=== PATIENT | female | born 1975 | race Caucasian/White ===

== ENCOUNTER 2020-08-10 16:49 | Inpatient (IN) | payer OTHER, MEDICARE ==
--- NOTE | 2020-08-10 17:56 | ED ---
General Adult HPI - General Chief complaint: Psychiatric Symptoms Stated complaint: psychosis Time Seen by Provider: 08/10/20 17:25 Source: patient Mode of arrival: ambulatory Limitations: no limitations - History of Present Illness Initial comments: Dictation was produced using [employer] dictation software. please excuse any grammatical, word or spelling errors. This patient was cared for during a federal and state declared state of emergency secondary to Covid 19 Chief Complaint: 45-year-old female presents with bizarre behavior History of Present Illness:. 45-year-old female she is accompanied by her . Patient was brought in for acute bizarre behavior. reports that he received were from patient's best friend that patient has been acting very bizarrely recently. Patient has past mental history of factor V Leiden. She takes Coumadin for this to prevent blood clotting issues. Patient has been very manic recently also has been very paranoid as if people are listening under home personal conversations. She's been having significant insomnia. Patient states she doesn't know why she needs to be in the emergency room. She states she's been under a lot of stress at home. She has no other comorbidities. No history of psychiatric illness. The ROS documented in this emergency department record has been reviewed and confirmed by me. Those systems with pertinent positive or negative responses have been documented in the HPI. All other systems are other negative and/or noncontributory. PHYSICAL EXAM: General Impression: Alert and oriented x3, not in acute distress HEENT: Normocephalic atraumatic, extra-ocular movements intact, pupils equal and reactive to light bilaterally, mucous membranes moist. Cardiovascular: Heart regular rate and rhythm Chest: Able to complete full sentences, no retractions, no tachypnea Abdomen: abdomen soft, non-tender, non-distended, no organomegaly Musculoskeletal: Pulses present and equal in all extremities, no peripheral edema Motor: no focal deficits noted Neurological: CN II-XII grossly intact, no focal motor or sensory deficits noted, non-gait ataxia, no dysdiadochokinesia Skin: Intact with no visualized rashes Psych: Normal affect and mood ED course: 45 y Old female presents with 3-4 days of acute onset paranoia, adelaida. She has no history of psychiatric illness. On arrival are within acceptable limits. Patient's neurologic physical exam is benign. Physical exam is otherwise benign except for her psychiatric portion were patient has been making outlandish paranoid claims. Given that patient has no psychiatric illness and that her symptoms began 3-4 days is concern of acute encephalopathy. Physical evaluation obtained. CBC normal. INR is supratherapeutic with level greater than 10.0. Metabolic panel is within acceptable limits. Rest of metabolic panel is negative. Urinalysis shows 2+ ketones. No white blood cell count. Toxicology is positive for opiates. Computed tomography scan of brain shows no acute processes. Patient not showing any signs of bleeding. She denies any low back pain. 2.5 mg of vitamin K. Patient be admitted for supratherapeutic INR. She will have consultation to psychiatry and neurology for encephalopathy evaluation. EKG interpretation: Ventricular rate 92, normal sinus rhythm, MO interval 120, QRS 80, QTc 437. No MO prolongation, no QTC prolongation, no ST or T-wave changes noted. Overall, this EKG is unremarkable - Related Data Allergies Allergy/AdvReac Type Severity Reaction Status Date / Time doxycycline Allergy Unknown Verified 08/10/20 17:18 Review of Systems ROS Statement: Those systems with pertinent positive or pertinent negative responses have been documented in the HPI. ROS Other: All systems not noted in ROS Statement are negative. Past Medical History Additional Past Medical History / Comment(s): Clotting disorder History of Any Multi-Drug Resistant Organisms: None Reported Past Surgical History: No Surgical Hx Reported Past Psychological History: No Psychological Hx Reported Smoking Status: Never smoker Past Alcohol Use History: Rare Past Drug Use History: None Reported General Exam Limitations: no limitations Course Vital Signs 08/10/20 17:15 Pulse Rate 108 H Respiratory 20 Rate Blood Pressure 151/117 O2 Sat by Pulse 100 Oximetry Medical Decision Making - Lab Data Result diagrams: 08/10/20 18:24 08/10/20 18:24 Lab Results 08/10/20 08/10/20 08/10/20 Range/Units 18:24 18:24 18:24 WBC 8.2 (3.8-10.6) k/uL RBC 4.57 (3.80-5.40) m/uL Hgb 12.9 (11.4-16.0) gm/dL Hct 38.6 (34.0-46.0) % MCV 84.5 (80.0-100.0) fL MCH 28.3 (25.0-35.0) pg MCHC 33.5 (31.0-37.0) g/dL RDW 14.5 (11.5-15.5) % Plt Count 341 (150-450) k/uL MPV 7.4 Neutrophils % 74 % Lymphocytes % 19 % Monocytes % 5 % Eosinophils % 0 % Basophils % 1 % Neutrophils # 6.1 (1.3-7.7) k/uL Lymphocytes # 1.6 (1.0-4.8) k/uL Monocytes # 0.4 (0-1.0) k/uL Eosinophils # 0.0 (0-0.7) k/uL Basophils # 0.1 (0-0.2) k/uL PT (9.0-12.0) sec INR (<1.2) APTT (22.0-30.0) sec Sodium 136 L (137-145) mmol/L Potassium 4.4 (3.5-5.1) mmol/L Chloride 97 L (98-107) mmol/L Carbon Dioxide 23 (22-30) mmol/L Anion Gap 16 mmol/L BUN 10 (7-17) mg/dL Creatinine 0.93 (0.52-1.04) mg/dL Est GFR (CKD-EPI)AfAm 88 (>60 ml/min/1.73 sqM) Est GFR (CKD-EPI)NonAf 76 (>60 ml/min/1.73 sqM) Glucose 69 L (74-99) mg/dL Calcium 10.3 H (8.4-10.2) mg/dL Magnesium 2.0 (1.6-2.3) mg/dL Total Bilirubin 0.7 (0.2-1.3) mg/dL AST 33 (14-36) U/L ALT 16 (4-34) U/L Alkaline Phosphatase 101 (38-126) U/L Total Protein 8.3 H (6.3-8.2) g/dL Albumin 5.1 H (3.5-5.0) g/dL TSH 2.170 (0.465-4.680) mIU/L Urine Color Light Yellow Urine Appearance Cloudy H (Clear) Urine pH 5.5 (5.0-8.0) Ur Specific Muir 1.008 (1.001-1.035) Urine Protein Negative (Negative) Urine Glucose (UA) Negative (Negative) Urine Ketones 2+ H (Negative) Urine Blood Trace H (Negative) Urine Nitrite Negative (Negative) Urine Bilirubin Negative (Negative) Urine Urobilinogen <2.0 (<2.0) mg/dL Ur Leukocyte Esterase Trace H (Negative) Urine RBC 1 (0-5) /hpf Urine WBC 2 (0-5) /hpf Ur Squamous Epith Cells 8 H (0-4) /hpf Urine Bacteria Rare H (None) /hpf Hyaline Casts 12 H (0-2) /lpf Urine Mucus Rare H (None) /hpf Urine Opiates Screen (NotDetected) Ur Oxycodone Screen (NotDetected) Urine Methadone Screen (NotDetected) Ur Propoxyphene Screen (NotDetected) Ur Barbiturates Screen (NotDetected) U Tricyclic Antidepress (NotDetected) Ur Phencyclidine Scrn (NotDetected) Ur Amphetamines Screen (NotDetected) U Methamphetamines Scrn (NotDetected) U Benzodiazepines Scrn (NotDetected) Urine Cocaine Screen (NotDetected) U Marijuana (THC) Screen (NotDetected) Serum Alcohol <10 mg/dL 08/10/20 08/10/20 Range/Units 18:24 18:30 WBC (3.8-10.6) k/uL RBC (3.80-5.40) m/uL Hgb (11.4-16.0) gm/dL Hct (34.0-46.0) % MCV (80.0-100.0) fL MCH (25.0-35.0) pg MCHC (31.0-37.0) g/dL RDW (11.5-15.5) % Plt Count (150-450) k/uL MPV Neutrophils % % Lymphocytes % % Monocytes % % Eosinophils % % Basophils % % Neutrophils # (1.3-7.7) k/uL Lymphocytes # (1.0-4.8) k/uL Monocytes # (0-1.0) k/uL Eosinophils # (0-0.7) k/uL Basophils # (0-0.2) k/uL PT >130.0 H (9.0-12.0) sec INR >10.0 H* (<1.2) APTT 62.9 H (22.0-30.0) sec Sodium (137-145) mmol/L Potassium (3.5-5.1) mmol/L Chloride (98-107) mmol/L Carbon Dioxide (22-30) mmol/L Anion Gap mmol/L BUN (7-17) mg/dL Creatinine (0.52-1.04) mg/dL Est GFR (CKD-EPI)AfAm (>60 ml/min/1.73 sqM) Est GFR (CKD-EPI)NonAf (>60 ml/min/1.73 sqM) Glucose (74-99) mg/dL Calcium (8.4-10.2) mg/dL Magnesium (1.6-2.3) mg/dL Total Bilirubin (0.2-1.3) mg/dL AST (14-36) U/L ALT (4-34) U/L Alkaline Phosphatase (38-126) U/L Total Protein (6.3-8.2) g/dL Albumin (3.5-5.0) g/dL TSH (0.465-4.680) mIU/L Urine Color Urine Appearance (Clear) Urine pH (5.0-8.0) Ur Specific Muir (1.001-1.035) Urine Protein (Negative) Urine Glucose (UA) (Negative) Urine Ketones (Negative) Urine Blood (Negative) Urine Nitrite (Negative) Urine Bilirubin (Negative) Urine Urobilinogen (<2.0) mg/dL Ur Leukocyte Esterase (Negative) Urine RBC (0-5) /hpf Urine WBC (0-5) /hpf Ur Squamous Epith Cells (0-4) /hpf Urine Bacteria (None) /hpf Hyaline Casts (0-2) /lpf Urine Mucus (None) /hpf Urine Opiates Screen Detected H (NotDetected) Ur Oxycodone Screen Not Detected (NotDetected) Urine Methadone Screen Not Detected (NotDetected) Ur Propoxyphene Screen Not Detected (NotDetected) Ur Barbiturates Screen Not Detected (NotDetected) U Tricyclic Antidepress Not Detected (NotDetected) Ur Phencyclidine Scrn Not Detected (NotDetected) Ur Amphetamines Screen Not Detected (NotDetected) U Methamphetamines Scrn Not Detected (NotDetected) U Benzodiazepines Scrn Not Detected (NotDetected) Urine Cocaine Screen Not Detected (NotDetected) U Marijuana (THC) Screen Not Detected (NotDetected) Serum Alcohol mg/dL Disposition Clinical Impression: Supratherapeutic INR, Encephalopathy Disposition: ADMITTED IP TO THIS HOSP Condition: Fair Referrals: Pravin Vences MD [Primary Care Provider] - 1-2 days Decision Time: 20:34
[2020-08-10 18:44] LABS: Basophils # (A) 0.1 k/uL (0-0.2); Basophils % (A) 1 %; Eosinophils % (A) 0 %; HCT 38.6 % (34.0-46.0); HGB 12.9 gm/dL (11.4-16.0); Lymphocytes # (A) 1.6 k/uL (1.0-4.8); Lymphocytes % (A) 19 %; MCH 28.3 pg (25.0-35.0); MCHC 33.5 g/dL (31.0-37.0); MCV 84.5 fL (80.0-100.0); Mean Platelet Volume 7.4; Monocytes # (A) 0.4 k/uL (0-1.0); Monocytes % (A) 5 %; Neutrophils # (A) 6.1 k/uL (1.3-7.7); Neutrophils % (A) 74 %; Platelet Count 341 k/uL (150-450); RBC 4.57 m/uL (3.80-5.40); RDW 14.5 % (11.5-15.5); WBC 8.2 k/uL (3.8-10.6)
[2020-08-10 18:54] LABS: Appearance,Urine Cloudy (Clear); Bacteria,Urine Rare /hpf; Bilirubin,Urine Negative (Negative); Blood,Urine Trace (Negative); Color,Urine Light Yellow; Glucose,Urine (UA) Negative (Negative); Hyaline Casts,Urine 12 /lpf (0-2); Ketones,Urine 2+ (Negative); Leukocyte Esterase,Urine Trace (Negative); Mucus,Urine Rare /hpf; Nitrite,Urine Negative (Negative); PH, Urine 5.5 (5.0-8.0); Protein,Urine Negative (Negative); RBC,Urine 1 /hpf (0-5); Specific Gravity,Urine 1.008 (1.001-1.035); Squamous Epithelial Cell,Urine 8 /hpf (0-4); Urobilinogen,Urine <2.0 mg/dL (<2.0); WBC,Urine 2 /hpf (0-5)
[2020-08-10 19:01] LABS: ALT 16 U/L (4-34); AST 33 U/L (14-36); African American GFR (CKD) 88 (>60 ml/min/1.73 sqM); Albumin 5.1 g/dL (3.5-5.0); Alcohol <10 mg/dL; Alkaline Phosphatase 101 U/L (38-126); Anion Gap 16 mmol/L; Blood Urea Nitrogen 10 mg/dL (7-17); Calcium 10.3 mg/dL (8.4-10.2); Carbon Dioxide 23 mmol/L (22-30); Chloride 97 mmol/L (98-107); Glucose 69 mg/dL (74-99); Non-African American GFR(CKD) 76 (>60 ml/min/1.73 sqM); Potassium 4.4 mmol/L (3.5-5.1); Sodium 136 mmol/L (137-145); Total Bilirubin 0.7 mg/dL (0.2-1.3); Total Protein 8.3 g/dL (6.3-8.2)
[2020-08-10 19:05] LABS: Cocaine Screen,Urine Not Detected (NotDetected); Phencyclidine Screen,Urine Not Detected (NotDetected); Urn Cannabinoid Scrn Not Detected (NotDetected)
[2020-08-10 19:06] LABS: Amphetamine Screen,Urine Not Detected (NotDetected); Barbiturate Screen,Urine Not Detected (NotDetected); Benzodiazepines Screen,Urine Not Detected (NotDetected); Methadone Screen, Urine Not Detected (NotDetected); Opiate Screen,Urine Detected (NotDetected); Oxycodone Screen, Urine Not Detected (NotDetected); Tricyclic Antidepressant,Urine Not Detected (NotDetected)
--- NOTE | 2020-08-10 19:24 | CT ---
EXAMINATION TYPE: CT brain wo con DATE OF EXAM: 08/10/2020 COMPARISON: 11/19/2018. HISTORY: Confusion CT DLP: 1099.4 mGycm. Automated Exposure Control for Dose Reduction was Utilized. TECHNIQUE: CT scan of the head is performed without contrast. FINDINGS: There is no acute intracranial hemorrhage, mass effect, or midline shift identified. The ventricles and sulci are within normal limits in size. The globes are intact and the visualized sin uses are clear. IMPRESSION: No acute intracranial hemorrhage, mass effect, or midline shift is seen.
[2020-08-10 19:47] LABS: INR >10.0 (<1.2); Partial Thromboplastin Time 62.9 sec (22.0-30.0); Prothrombin Time >130.0 sec (9.0-12.0)
[2020-08-10] MEDS ORDERED: LORazepam 2 MG/ML INJ IV STA (20:08)
[2020-08-10] MEDS ORDERED: SODIUM CHLORIDE 0.9% 1,000 ML IV STA (20:08)
[2020-08-10] MEDS ORDERED: PHYTONADIONE ORAL 5 MG/5 ML ORAL.SYRG PO STA (20:22)
[2020-08-10] MEDS ORDERED: NALOXONE 0.4 MG/ML 1 ML VIAL IV PRN (20:28)
[2020-08-10] MEDS ORDERED: SODIUM CHLORIDE 0.9% 1,000 ML IV SCH (20:30)
[2020-08-10] MEDS ORDERED: LORazepam 2 MG/ML INJ IV PRN (21:36)
[2020-08-10] MEDS ORDERED: diphenhydrAMINE 25 MG CAP PO PRN (21:37)
[2020-08-11] MEDS ORDERED: ONDANSETRON ODT 8 MG TAB.RAPDIS PO PRN (08:37)
[2020-08-11] MEDS ORDERED: HALOPERIDOL LACTATE 5 MG/ML 1 ML VIAL IVP PRN (08:55)
[2020-08-11 09:02] LABS: Prothrombin Time >130.0 sec (9.0-12.0)
[2020-08-11 09:05] LABS: INR >10.0 (<1.2)
[2020-08-11 09:06] LABS: Glucose,Whole Blood 67 mg/dL (75-99)
[2020-08-11 09:16] VITALS: BP 132/86; PULSE 104; RESP 16; TEMP 98.6
[2020-08-11] MEDS ORDERED: PHYTONADIONE ORAL 5 MG/5 ML ORAL.SYRG PO STA (09:22)
[2020-08-11] MEDS: GABAPENTIN 400 MG CAP PO SCH ×2 (10:10→10:15)
[2020-08-11] MEDS: busPIRone HCl 10 MG TAB PO SCH ×2 (10:10→10:15)
--- NOTE | 2020-08-11 10:46 | P.DS ---
Providers Date of admission: 08/10/20 20:28 Attending physician: Alicia Pemberton Consults: 08/10/20 20:27 Consult Physician Routine Consulting Provider: Parvez Davenport Consult Reason/Comments: adelaida Do you want consulting provider notified?: Yes Primary care physician: Pravin Vences Hospital Course: Please refer to my HPI for further details Patient Condition at Discharge: Fair Plan - Discharge Summary Discharge Rx Participant: No New Discharge Prescriptions: Continue Ondansetron Odt [Zofran ODT] 8 mg PO Q8HR PRN PRN Reason: Nausea Gabapentin 800 mg PO BID Cholecalciferol [Vitamin D3 (25 Mcg = 1000 Iu)] 5,000 unit PO DAILY busPIRone HCL [Buspar] 30 mg PO BID Cetirizine HCl 10 mg PO DAILY Acetaminophen [Tylenol] 500 mg PO Q4-6H PRN PRN Reason: Pain Discontinued Warfarin Sodium 2.5 mg PO DIRECTED HYDROcodone/APAP 10-325MG [Honeydew 10-325] 1 tab PO QID PRN PRN Reason: Pain Discharge Medication List Acetaminophen [Tylenol] 500 mg PO Q4-6H PRN 08/10/20 [History] Cetirizine HCl 10 mg PO DAILY 08/10/20 [History] Cholecalciferol [Vitamin D3 (25 Mcg = 1000 Iu)] 5,000 unit PO DAILY 08/10/20 [History] Gabapentin 800 mg PO BID 08/10/20 [History] Ondansetron Odt [Zofran ODT] 8 mg PO Q8HR PRN 08/10/20 [History] busPIRone HCL [Buspar] 30 mg PO BID 08/10/20 [History] Follow up Appointment(s)/Referral(s): Pravin Vences MD [Primary Care Provider] - 1-2 days
--- NOTE | 2020-08-11 10:46 | P.HPIM ---
History of Present Illness 45-year-old the female came in because of bizarre behavior appears to have psychosis. Patient is admitted to my service because of elevated INR. Patient has factor V Leyden deficiency and had history of DVTs in the past patient INR is about 10. Patient was only given 2.5 mg of vitamin K. Patient will be given 10 more milligrams although patient is not competent in the keeps on changing her mind patient did decline to have a peripheral IV line. Patient is paranoid and believes all the nursing staff for usual. Patient wanted to go home. Patient doesn't have any history of psychiatric illness in the past. Patient says she is completely healed and at the doesn't need to take Coumadin and has not been taking Coumadin at home. She denied any hematuria, hematemesis or melena or hematochezia. Review of Systems REVIEW OF SYSTEMS: CONSTITUTIONAL: No fever, no malaise, no fatigue. HEENT: No recent visual problems or hearing problems. Denied any sore throat. CARDIOVASCULAR: No chest pain, orthopnea, PND, no palpitations, no syncope. PULMONARY: No shortness of breath, no cough, no hemoptysis. GASTROINTESTINAL: No diarrhea, no nausea, no vomiting, no abdominal pain. NEUROLOGICAL: No headaches, no weakness, no numbness. HEMATOLOGICAL: Denies any bleeding or petechiae. GENITOURINARY: Denies any burning micturition, frequency, or urgency. MUSCULOSKELETAL/RHEUMATOLOGICAL: Denies any joint pain, swelling, or any muscle pain. ENDOCRINE: Denies any polyuria or polydipsia. The rest of the 14-point review of systems is negative. Past Medical History Additional Past Medical History / Comment(s): Clotting disorder History of Any Multi-Drug Resistant Organisms: None Reported Past Surgical History: No Surgical Hx Reported Past Anesthesia/Blood Transfusion Reactions: No Reported Reaction Past Psychological History: No Psychological Hx Reported Smoking Status: Never smoker Past Alcohol Use History: Rare Past Drug Use History: None Reported - Past Family History Mother Additional Family Medical History / Comment(s): of clotting disorder Medications and Allergies Home Medications Medication Instructions Recorded Confirmed Type Acetaminophen [Tylenol] 500 mg PO Q4-6H PRN 08/10/20 08/10/20 History Cetirizine HCl 10 mg PO DAILY 08/10/20 08/10/20 History Cholecalciferol [Vitamin D3 (25 5,000 unit PO DAILY 08/10/20 08/10/20 History Mcg = 1000 Iu)] Gabapentin 800 mg PO BID 08/10/20 08/10/20 History HYDROcodone/APAP 10-325MG [Russell 1 tab PO QID PRN 08/10/20 08/10/20 History 10-325] Ondansetron Odt [Zofran Odt] 8 mg PO Q8HR PRN 08/10/20 08/10/20 History Warfarin Sodium 2.5 mg PO DIRECTED 08/10/20 08/10/20 History busPIRone HCL [Buspar] 30 mg PO BID 08/10/20 08/10/20 History Allergies Allergy/AdvReac Type Severity Reaction Status Date / Time doxycycline Allergy Nausea & Verified 08/10/20 21:05 Vomiting amitriptyline AdvReac Confusion Verified 08/10/20 21:05 Physical Exam Vitals: Vital Signs Temp Pulse Pulse Resp BP BP Pulse Ox 08/11/20 08:30 98.6 F 104 H 16 132/86 98 08/11/20 04:00 98.0 F 96 18 135/83 96 08/11/20 00:00 98.1 F 94 18 141/85 100 08/10/20 17:15 108 H 20 151/117 100 Intake and Output 08/10/20 08/11/20 08/11/20 22:59 06:59 14:59 Other: Voiding Method Toilet # Voids 1 0 Weight 64.41 kg 65.9 kg PHYSICAL EXAMINATION: GENERAL: The patient is alert and oriented x3, not in any acute distress. Well developed, well nourished. HEENT: Pupils are round and equally reacting to light. EOMI. No scleral icterus. No conjunctival pallor. Normocephalic, atraumatic. No pharyngeal erythema. No thyromegaly. CARDIOVASCULAR: S1 and S2 present. No murmurs, rubs, or gallops. PULMONARY: Chest is clear to auscultation, no wheezing or crackles. ABDOMEN: Soft, nontender, nondistended, normoactive bowel sounds. No palpable organomegaly. MUSCULOSKELETAL: No joint swelling or deformity. EXTREMITIES: No cyanosis, clubbing, or pedal edema. NEUROLOGICAL: Gross neurological examination did not reveal any focal deficits. SKIN: Some bruises. Results CBC & Chem 7: 08/10/20 18:24 08/10/20 18:24 Labs: Abnormal Lab Results - Last 24 Hours (Table) 08/10/20 08/10/20 08/10/20 Range/Units 18:24 18:24 18:24 PT >130.0 H (9.0-12.0) sec INR >10.0 H* (<1.2) APTT 62.9 H (22.0-30.0) sec Sodium 136 L (137-145) mmol/L Chloride 97 L (98-107) mmol/L Glucose 69 L (74-99) mg/dL POC Glucose (mg/dL) (75-99) mg/dL Calcium 10.3 H (8.4-10.2) mg/dL Total Protein 8.3 H (6.3-8.2) g/dL Albumin 5.1 H (3.5-5.0) g/dL Urine Appearance Cloudy H (Clear) Urine Ketones 2+ H (Negative) Urine Blood Trace H (Negative) Ur Leukocyte Esterase Trace H (Negative) Ur Squamous Epith Cells 8 H (0-4) /hpf Urine Bacteria Rare H (None) /hpf Hyaline Casts 12 H (0-2) /lpf Urine Mucus Rare H (None) /hpf Urine Opiates Screen (NotDetected) 08/10/20 08/11/20 08/11/20 Range/Units 18:30 07:38 08:46 PT >130.0 H (9.0-12.0) sec INR >10.0 H* (<1.2) APTT (22.0-30.0) sec Sodium (137-145) mmol/L Chloride (98-107) mmol/L Glucose (74-99) mg/dL POC Glucose (mg/dL) 67 L (75-99) mg/dL Calcium (8.4-10.2) mg/dL Total Protein (6.3-8.2) g/dL Albumin (3.5-5.0) g/dL Urine Appearance (Clear) Urine Ketones (Negative) Urine Blood (Negative) Ur Leukocyte Esterase (Negative) Ur Squamous Epith Cells (0-4) /hpf Urine Bacteria (None) /hpf Hyaline Casts (0-2) /lpf Urine Mucus (None) /hpf Urine Opiates Screen Detected H (NotDetected) Assessment and Plan Plan: - suprapubic INR is given 10 more milligrams of vitamin K I discussed with the patient and patient is agreeable to take that vitamin K main issue with her is noncompliance from paranoia. Psychiatry was consulted. Patient doesn't have any evidence of bleed at this time as a has main issues acute psychosis patient can go to psychiatric floor, patient is hemodynamically and medically stable to be discharged to psychiatric floor. His INR can be followed on the acute floor as well. We'll recheck the INR tomorrow. -Factor V Leyden deficiency with history of DVT in the past -Acute psychosis and paranoia. -Peripheral neuropathy for which patient is on gabapentin which can be continued -Mild sinus tachycardia secondary to anxiety. Patient wanted to go home, patient is presently petitioned.
[2020-08-11] MEDS: risperiDONE 1 MG TAB PO STA ×2 (13:35→13:36)
--- NOTE | 2020-08-11 14:12 | P.CN ---
Psychiatric Consult - . Consult date: 08/11/20 Consult:: 08/11/20 14:05 IDENTIFYING DATA: This patient is a 45-year-old female currently lives with her in a home has 1 kid and is a [id number] mother. REASON FOR REFERRAL: Psychiatry was consulted for adelaida HISTORY OF PRESENT ILLNESS: The patient presented to the hospital for bizarre behavior according her . According to ER report patient was exhibiting bizarre behavior and was paranoid claiming that people were listening to her personal conversations. Report also clean the patient was having insomnia at home. UDS was positive for opiates. Computed tomography scan of her head was negative. Patient's INR and PTT were significantly elevated and patient received 1 dose of vitamin K on the medical unit. Patient was seen by service writer today and had a sitter at the bedside. Patient was acting very suspicious of service writer and asked several questions about him. She claims that "nobody can establish why I'm here". She had inappropriate affect and smiled several times to service writer. She was bizarre at times and inappropriate. She was also loose in associations and was exhibiting grandiosity claiming that "I want to own this hospital after all this". She claims that her last name is "Dorian". She was religiously preoccupied and mentioned got several times. She appeared to have poor insight and judgment. She states that her mood is "good" and claims that she is sleeping fairly. She believes it is July" and also spoke about the presidency. She was fairly defensive about medications and has been refusing meds at this time. At this time patient denies any suicidal or homical ideations, intent or plan. Patient denies any auditory, visual hallucinations. Patients admits to using no recreational drugs or cigarettes. PAST PSYCHIATRIC HISTORY: Patient has no known psychiatric history. Patient denies being on any psychiatric medications. Patient denies any previous psychiatric hospitalizations. Patient denies any psychiatric outpatient follow- up. Patient denies any history of suicide attempts in the past. PAST MEDICAL HISTORY: Patient has factor V Leiden. ALLERGIES: as per EMR. CHEMICAL DEPENDENCY HISTORY: as per HPI. FAMILY PSYCHIATRIC/SUBSTANCE USE HISTORY: denies SOCIAL HISTORY: Patient was born and raised in [facility] and states that she has a bachelor's degree in social work. She states that she is a [id number] mother at this time has 1 kid lives with her . She states that she has never been to prison or assisted.. MENTAL STATUS EXAM: General Appearance: Patient appears to be stated age is alert, inappropriate and bizarre. smiled several times at service writer inappropriately. Patient appears to have fair hygiene and grooming wearing hospital gown with intense eye contact. Behavior: Patient is calmly lying in bed without any agitated behavior. Speech: Patient's speech is fluent and nonpressured. Mood/Affect: Patient reports their mood is "ok", affect is congruent Suicidality/Homicidality: Patient denies having any suicidal or homicidal ideation intent or plan. Perceptions: Patient denies any visual hallucinations and denies any auditory hallucinations Though content/process: Bizarre, religiously preoccupied. Delusional. Endors ing paranoia. Memory and concentration: AOX2, believes that it is July 2021. Poor attention span. Judgment and insight: poor IMPRESSIONS: Psychosis unspecified PLAN: -At this time patient DOES meet criteria for inpatient psychiatric admission. -Patient DOES NOT have decision making capacity at this time and is unable to reason through and communicate/appreciate the risks, benefits and alternatives to treatment. -Would recommend the following medication changes/additions: We'll start patient on paliperidone 3mg qhs for psychosis/mood stabilization. Haldol and Ativan PRN for agitation/psychosis. -Continue 1:1 sitter for safety -Cannot leave AMA at this time. Patient will need a petition and certification if attempting to leave AMA. -When medically stable, patient is eligible for transfer to a psych bed when available. -Communicated plan to patient's nurse -Psychiatry will sign off at this time -Please contact with any questions.
[2020-08-11] MEDS ORDERED: LORazepam 2 MG/ML INJ IM PRN (14:13)
[2020-08-11] MEDS ORDERED: HALOPERIDOL LACTATE 5 MG/ML 1 ML VIAL IM PRN (14:13)
[2020-08-11] MEDS ORDERED: risperiDONE 1 MG TAB PO STA (14:48)
[2020-08-11] MEDS ORDERED: PALIPERIDONE 3 MG TAB.ER.24 PO SCH (21:00)
== END 2020-08-11 16:04 | DRG 816 ==
LOC: EC 16:49 → 3SCARD 20:28
PROVIDERS: ADMIT Hospitalist; ATTEND Hospitalist
DX: D68.51 Activated protein C resistance (principal); F29 Unspecified psychosis not due to a substance or known physiological condition; G62.9 Polyneuropathy, unspecified; R00.0 Tachycardia, unspecified; G47.00 Insomnia, unspecified; F41.9 Anxiety disorder, unspecified; Z79.01 Long term (current) use of anticoagulants; Z79.899 Other long term (current) drug therapy; Z91.14 Patient's other noncompliance with medication regimen; Z86.718 Personal history of other venous thrombosis and embolism; Z88.1 Allergy status to other antibiotic agents; Z83.2 Family history of diseases of the blood and blood-forming organs and certain disorders involving the immune mechanism
CPT/HCPCS: 36415; 70450; 80053; 80306; 80320; 81001; 82075; 83735; 84443; 85025; 85610; 85730; 93005; 96361; 96374; 99285

== ENCOUNTER 2020-08-11 16:10 | Inpatient (IN) | payer OTHER, MEDICARE ==
[2020-08-11] MEDS ORDERED: MAGNESIUM HYDROXIDE 2,400 MG/10 ML CUP PO PRN (16:18)
[2020-08-11] MEDS ORDERED: LORazepam 1 MG TAB PO PRN (16:18)
[2020-08-11] MEDS ORDERED: ACETAMINOPHEN TAB 325 MG TAB PO PRN (16:18)
[2020-08-11] MEDS ORDERED: MAG HYDROX/AL HYDROX/SIMETH 30 ML CUP PO PRN (16:18)
[2020-08-11] MEDS: busPIRone HCl 10 MG TAB PO SCH (20:00)
[2020-08-11] MEDS: GABAPENTIN 400 MG CAP PO SCH (20:01)
[2020-08-11] MEDS: PALIPERIDONE 3 MG TAB.ER.24 PO SCH (20:01)
[2020-08-11] MEDS: HALOPERIDOL LACTATE 5 MG/ML 1 ML VIAL IM SCH (21:47)
[2020-08-12 06:17] LABS: Cholesterol 202 mg/dL (<200); HDL Cholesterol 85 mg/dL (40-60); LDL Cholesterol,Calculated 101 mg/dL (0-99); Triglycerides 79 mg/dL (<150)
[2020-08-12] MEDS: GABAPENTIN 400 MG CAP PO SCH ×2 (10:13→21:09)
[2020-08-12] MEDS: busPIRone HCl 10 MG TAB PO SCH ×2 (10:13→21:09)
[2020-08-12] MEDS: LORATADINE 10 MG TAB PO SCH (10:14)
[2020-08-12] MEDS: HALOPERIDOL LACTATE 5 MG/ML 1 ML VIAL IM SCH (10:16)
[2020-08-12] MEDS ORDERED: LORazepam 2 MG/ML INJ IM PRN (10:28)
[2020-08-12] MEDS ORDERED: HALOPERIDOL LACTATE 5 MG/ML 1 ML VIAL IM PRN (10:29)
--- NOTE | 2020-08-12 11:53 | P.HP ---
Psychiatric H&P - . H&P Date: 08/12/20 History & Physical: Allergies Allergy/AdvReac Type Severity Reaction Status Date / Time doxycycline Allergy Nausea & Verified 08/11/20 18:11 Vomiting amitriptyline AdvReac Confusion Verified 08/11/20 18:11 Vital Signs Temp 97.7 F 08/12/20 06:27 Pulse 101 H 08/12/20 06:27 Resp 16 08/12/20 06:27 BP 115/71 08/12/20 06:27 Pulse Ox 100 08/11/20 17:27 Intake & Output 08/11/20 08/12/20 08/12/20 18:59 06:59 18:59 Weight 64.665 kg 64 kg Laboratory Last Values Triglycerides 79 mg/dL (<150) 08/11/20 07:38 Cholesterol 202 mg/dL (<200) H 08/11/20 07:38 LDL Cholesterol, Calc 101 mg/dL (0-99) H 08/11/20 07:38 HDL Cholesterol 85 mg/dL (40-60) H 08/11/20 07:38 Coronavirus (PCR) Not Detected (Not Detectd) 08/11/20 18:27 08/12/20 11:42 IDENTIFYING DATA: This patient is a 45-year-old female currently lives with her in a home has 1 kid and is a [id number] mother. HISTORY OF PRESENT ILLNESS: The patient initially presented to the hospital for bizarre behavior according her . According to ER report patient was exhibiting bizarre behavior and was paranoid claiming that people were listening to her personal conversations. Report also clean the patient was having insomnia at home. UDS was positive for opiates. Computed tomography scan of her head was negative. Patient's INR and PTT were significantly elevated and patient received 1 dose of vitamin K on the medical unit. Patient was seen by contract technical writer for psychiatric consultation yesterday at the bedside on the medical floor. Patient was acting very suspicious of contract technical writer and asked several questions about him. She claims that "nobody can establish why I'm here". She had inappropriate affect and smiled several times to contract technical writer. She was bizarre at times and inappropriate. She was also loose in associations and was exhibiting grandiosity claiming that "I want to own this hospital after all this". She claims that her last name is "Dorian". She was religiously preoccupied and mentioned got several times. She appeared to have poor insight and judgment. She believed it was July" and also spoke about the presidency. Ej howell was seen once again today by contract technical writer for psychiatric admission and patient denied any overnight complaints and states that she was able to sleep better last night on the medication. She states that she try to take the paliperidone. She is continues to have superficial insight and poor judgment. She denied any problems with her mood today and states that she is feeling "okay". She denied any anxiety. She did not display any manic behaviors or any racing thoughts. Paranoia has been improving and was less religiously preoccupied today. At this time patient denies any suicidal or homical ideations, intent or plan. Patient denies any auditory, visual hallucinations. Patients admits to using no recreational drugs or cigarettes. PAST PSYCHIATRIC HISTORY: Patient has no known psychiatric history. Patient denies being on any psychiatric medications. Patient denies any previous psychiatric hospitalizations. Patient denies any psychiatric outpatient follow- up. Patient denies any history of suicide attempts in the past. PAST MEDICAL HISTORY: Patient has factor V Leiden. ALLERGIES: as per EMR. CHEMICAL DEPENDENCY HISTORY: as per HPI. FAMILY PSYCHIATRIC/SUBSTANCE USE HISTORY: denies SOCIAL HISTORY: Patient was born and raised in [facility] and states that she has a bachelor's degree in social work. She states that she is a [id number] mother at this time has 1 kid lives with her . She states that she has never been to detention or half-way.. MENTAL STATUS EXAM: General Appearance: Patient appears to be stated age is alert, or appropriate today. patient is attempting to be more appropriate contract technical writer today. Patient appears to have poor hygiene and grooming wearing hospital gown with intense eye contact. Behavior: Patient is calmly lying in bed without any agitated behavior. Speech: Patient's speech is fluent and nonpressured. Mood/Affect: Patient reports their mood is "fine", affect is congruent Suicidality/Homicidality: Patient denies having any suicidal or homicidal ideation intent or plan. Perceptions: Patient denies any visual hallucinations and denies any auditory hallucinations Though content/process: Bizarre, religiously preoccupied. Delusional, Endorsing paranoia has been mildly improving. Memory and concentration: AOX2, believes that it is July 2021. Poor attention span. Judgment and insight: poor STRENGTHS/WEAKNESSES: strength is that patient is resilient. Weakness is that patient has poor judgment INTELLECT: average IMPRESSIONS: Psychosis unspecified PLAN: -Patient is admitted under involuntary status to [facility]HU for stabilization of psychiatric symptoms and safety. Patient has not signed adult voluntary form and is placed in patient's chart. A second certification was completed and along with petition will be filed for court. -Medications : Will start patient on paliperidone 3 mg daily at bedtime for psychosis/mood stabilization. Continue with BuSpar 30 mg twice a day for anxiety. -Ativan and Haldol PRN for agitation/aggression -Patient was informed of the risks, benefits and side effects of the medication and patient verbally consented to taking the medications -Internal Medicine consult to perform medical evaluation and physical. -NRT -not needed as patient does not smoke. -SW on board for discharge planning. Encourage patient to participate in groups to work on coping skills. Further collateral history will need to be gathered by oncology social work from patient's . We'll await deferral and court hearing date. 08/12/20 11:53
[2020-08-12 13:28] LABS: Prothrombin Time 74.4 sec (9.0-12.0)
[2020-08-12 13:35] LABS: INR 7.2 (<1.2)
[2020-08-12] MEDS ORDERED: PHYTONADIONE ORAL 5 MG/5 ML ORAL.SYRG PO STA (13:42)
[2020-08-12 13:54] LABS: Hemoglobin A1C 5.8 % (4.0-6.0)
--- NOTE | 2020-08-12 14:18 | P.CONS ---
History of Present Illness - Reason for Consult Elevated INR - History of Present Illness Patient is a 45-year-old female was transferred from my service to psychiatric floor for acute psychosis. The patient's INR was about 10. Patient received total of 12.5 mg of vitamin K. Patient INR came down to around 7. Patient will be given 5 more milligrams of vitamin K. Patient denied any fever chills nausea vomiting patient doesn't have any blood in the stools dark stools hematuria hematemesis. INR will be repeated tomorrow morning. Patient was tachycardic because of acute psychosis. Patient has history of DVTs and factor V Leyden deficiency in the past Review of Systems REVIEW OF SYSTEMS: CONSTITUTIONAL: No fever, no malaise, no fatigue. HEENT: No recent visual problems or hearing problems. Denied any sore throat. CARDIOVASCULAR: No chest pain, orthopnea, PND, no palpitations, no syncope. PULMONARY: No shortness of breath, no cough, no hemoptysis. GASTROINTESTINAL: No diarrhea, no nausea, no vomiting, no abdominal pain. NEUROLOGICAL: No headaches, no weakness, no numbness. HEMATOLOGICAL: Denies any bleeding or petechiae. GENITOURINARY: Denies any burning micturition, frequency, or urgency. MUSCULOSKELETAL/RHEUMATOLOGICAL: Denies any joint pain, swelling, or any muscle pain. ENDOCRINE: Denies any polyuria or polydipsia. The rest of the 14-point review of systems is negative. Past Medical History Past Medical History: Blood Disorder Additional Past Medical History / Comment(s): Clotting disorder History of Any Multi-Drug Resistant Organisms: None Reported Past Surgical History: Section Additional Past Surgical History / Comment(s): x 1 Past Anesthesia/Blood Transfusion Reactions: No Reported Reaction Past Psychological History: No Psychological Hx Reported Smoking Status: Never smoker Past Alcohol Use History: None Reported Past Drug Use History: None Reported - Past Family History Mother Family Medical History: Blood Disorder Additional Family Medical History / Comment(s): of clotting disorder Medications and Allergies Home Medications Medication Instructions Recorded Confirmed Type Acetaminophen [Tylenol] 500 mg PO Q4-6H PRN 08/10/20 08/11/20 History Cetirizine HCl 10 mg PO DAILY 08/10/20 08/11/20 History Cholecalciferol [Vitamin D3 (25 5,000 unit PO DAILY 08/10/20 08/11/20 History Mcg = 1000 Iu)] Gabapentin 800 mg PO BID 08/10/20 08/11/20 History Ondansetron Odt [Zofran ODT] 8 mg PO Q8HR PRN 08/10/20 08/11/20 History busPIRone HCL [Buspar] 30 mg PO BID 08/10/20 08/11/20 History Allergies Allergy/AdvReac Type Severity Reaction Status Date / Time doxycycline Allergy Nausea & Verified 08/11/20 18:11 Vomiting amitriptyline AdvReac Confusion Verified 08/11/20 18:11 Physical Exam Vitals: Vital Signs Temp Pulse Resp BP Pulse Ox 08/12/20 12:37 97.9 F 08/12/20 06:27 97.7 F 101 H 16 115/71 08/11/20 23:20 98.7 F 08/11/20 17:27 97.1 F L 128 H 20 123/81 100 Intake and Output 08/11/20 08/12/20 08/12/20 22:59 06:59 14:59 Other: Weight 64.665 kg 64 kg PHYSICAL EXAMINATION: GENERAL: The patient is alert and oriented x3, not in any acute distress. Well developed, well nourished. HEENT: Pupils are round and equally reacting to light. EOMI. No scleral icterus. No conjunctival pallor. Normocephalic, atraumatic. No pharyngeal erythema. No thyromegaly. CARDIOVASCULAR: S1 and S2 present. No murmurs, rubs, or gallops. PULMONARY: Chest is clear to auscultation, no wheezing or crackles. ABDOMEN: Soft, nontender, nondistended, normoactive bowel sounds. No palpable organomegaly. MUSCULOSKELETAL: No joint swelling or deformity. EXTREMITIES: No cyanosis, clubbing, or pedal edema. NEUROLOGICAL: Gross neurological examination did not reveal any focal deficits. SKIN: No rashes. Results Labs: Abnormal Lab Results - Last 24 Hours (Table) 08/11/20 08/12/20 Range/Units 07:38 13:02 PT 74.4 H (9.0-12.0) sec INR 7.2 H* (<1.2) Cholesterol 202 H (<200) mg/dL LDL Cholesterol, Calc 101 H (0-99) mg/dL HDL Cholesterol 85 H (40-60) mg/dL Assessment and Plan Plan: -Supratherapeutic INR: Patient INR presently is around 7 will be given 5 mg of Coumadin repeat INR tomorrow -Factor V Leyden deficiency with history of DVT in the past -Acute psychosis and paranoia: Management as per primary service -Peripheral neuropathy for which patient is on gabapentin which can be continued -Mild sinus tachycardia secondary to acute psychosis
[2020-08-12] MEDS: PALIPERIDONE 3 MG TAB.ER.24 PO SCH (21:09)
[2020-08-13] MEDS: GABAPENTIN 400 MG CAP PO SCH ×2 (08:35→20:35)
[2020-08-13] MEDS: LORATADINE 10 MG TAB PO SCH (08:35)
[2020-08-13] MEDS: busPIRone HCl 10 MG TAB PO SCH ×2 (08:36→20:34)
[2020-08-13 12:30] LABS: INR 1.2 (<1.2); Prothrombin Time 12.3 sec (9.0-12.0)
--- NOTE | 2020-08-13 13:38 | P.PN ---
Progress Note - Text Progress Note Date: 08/13/20 Clinical Problems: Unspecified psychotic disorder, rule out psychotic disorder secondary to kratom use, rule out affective psychosis, history of a depressive disorder Interim history: I reviewed the medical record, interviewed the patient and discuss her treatment and treatment plan during team meeting. She is a 45-year-old female transferred to the psychiatric unit from the medical unit involuntarily. Her brought her to the hospital because she was acting "bizarre". On presentation to the ED she was paranoid claiming that people were listening to her personal conversations. She was admitted to medicine service because her INR and PTT were elevated. On admission to the psychiatric unit she was religiously preoccupied, believed that her last name was "Dorian" she and mentioned god several times during the interview. We started on paliperidone 3 mg daily. She received 1 dose of admission. Today she denied feeling paranoid and denied that she had a special relationship with God or Peter Dorian. When I asked about her alleging her last name is Dorian she responded that she does not know why she said that. She thinks that she was confused when she told her doctor that her last name was "Dorian". She denied experiencing paranoia, ideas reference or auditory or visual hallucinations. She talked about feeling overwhelmed by multiple stresses. Her and 3 of their children are now at home. The night prior to admission she took 2 tablets of kratom. She asked whether her paranoia and confusion was related to the kratom. She usually takes 1 tablet of kratom every "couple weeks" for treatment of chronic pain (she alleged that her primary physician approved the use). She denied that she is never experienced confusion or paranoia after taking the kratom. Mental status exam: She presented as a short casually groomed female who was pleasant on approach. She made eye contact and attended to interview. She had no distinguishing features or prominent physical abnormalities. She had a bright facial expression. She was alert and oriented to person, place and time. She showed no abnormality of psychomotor activity. She had no abnormal involuntary movements. Her speech was spontaneous with increased rate but norm al rhythm and volume. Her affect was bright, stable and appropriate. She denied suicidal ideation or wishes. She denied homicidal ideation. She denied feeling hopeless, helpless or worthless. She did not express ideas reference, paranoid ideation, magical ideation or delusions. She expressed no or overvalued ideas regarding mormon or her relationship with God. Her thinking was abstract and associations were logical, coherent and goal directed. She denied hallucinations and didn't appear to be responding to internal stimuli. Assessment: She is a 45-year-old woman who has a history of a factor V Leiden deficiency. She presented to the psychiatric unit with acute onset of paranoia and grandiose delusional beliefs. The paranoia and delusion appears to have developed after taking a higher dose of Kratom than she normally consumes. The paranoia and religion preoccupation has diminished. Plan: Continue inpatient treatment. Deferral hearing pending. Continue paliperidone 3 mg daily and titrated according to clinical response and tolerance. Consult on the adverse effects of Kratom use. Encourage participation in therapeutic groups and activities. Evaluate clinical status response to treatment daily basis.
[2020-08-13] MEDS ORDERED: WARFARIN 3 MG TAB PO SCH (18:00)
[2020-08-13] MEDS: PALIPERIDONE 3 MG TAB.ER.24 PO SCH (20:34)
[2020-08-14 06:21] VITALS: BP 106/55; PULSE 104; RESP 17; TEMP 97.9
[2020-08-14] MEDS: GABAPENTIN 400 MG CAP PO SCH (08:43)
[2020-08-14] MEDS: LORATADINE 10 MG TAB PO SCH (08:43)
[2020-08-14] MEDS: busPIRone HCl 10 MG TAB PO SCH (08:43)
--- NOTE | 2020-08-14 11:39 | P.DS ---
Providers Date of admission: 08/11/20 16:10 Attending physician: Catalino Syed MD Consults: 08/11/20 16:18 Consult Physician Routine Consulting Provider: Karen Milan Consult Reason/Comments: medical management Do you want consulting provider notified?: Yes Primary care physician: Pravin Vences - Discharge Diagnosis(es) (1) Substance-induced psychotic disorder with delusions Current Visit: Yes Status: Resolved Priority: High (2) Adjustment disorder with mixed disturbance of emotions and conduct Current Visit: Yes Status: Acute Priority: High (3) Supratherapeutic INR Current Visit: No Status: Resolved Priority: High (4) Factor V Leiden Current Visit: Yes Status: Chronic Priority: Medium Hospital Course: HISTORY: She is a 45-year-old female transferred to the psychiatric unit from the medical unit involuntarily. Her brought her to the hospital because she was acting "bizarre". On presentation to the ED she was paranoid claiming that people were listening to her personal conversations. She was admitted to medicine service because her INR and PTT were elevated. On admission to the psychiatric unit she was religiously preoccupied, believed that her last name was "Dorian" she and mentioned god several times during the interview. She attributed her mental status changes to feeling overwhelmed by multiple stresses. She, her and 3 of her children were placed in quarantine for 14 days. The night prior to admission she took 2 tablets of kratom. She usually takes 1 tablet of kratom every "couple weeks" for treatment of chronic pain (she alleged that her primary physician approved the use). She denied that she is never experienced confusion or paranoia after taking the kratom. HOSPITAL COURSE: We admitted her to the psychiatric unit involuntarily under the care of this technical document writer. Provided a comprehensive biopsychosocial assessment. The business system consultant commissioning specialist completed initial physical exam and medical history and diagnosis supra therapeutic INR, affective 5 related deficiency in the peripheral neuropathy. The business system consultant recommended to resume Coumadin 6 mg daily and monitor INR. He also recommended to continue Neurontin 800 mg twice a day for the peripheral neuropathy. We treated her confusion, paranoia and delusional beliefs with paliperidone 3 mg daily. The paranoia, confusion and delusional thinking rapidly abated supporting the belief that the mental status changes would likely result of the use of Kratom. She understood her discussion that Kratom can cause psychosis. She stated that since her admission her has disposed the remaining of the drug. MENTAL STATUS ON DISCHARGE: She presented as a short casually groomed female who was pleasant on approach. She made eye contact and attended to interview. She had no distinguishing features or prominent physical abnormalities. She had a blunted but bright facial expression. She was alert and oriented to person, place and time. She showed no abnormality of psychomotor activity. She had no abnormal involuntary movements. Her speech was spontaneous with increased rate but normal rhythm and volume. Her affect was bright, stable and appropriate. She denied suicidal ideation or wishes. She denied homicidal ideation. She denied feeling hopeless, helpless or worthless. She did not express ideas reference, paranoid ideation, magical ideation or delusions. She expressed no or overvalued ideas regarding jehovah's witness or her relationship with God. Her thinking was abstract and associations were logical, coherent and goal directed. She denied hallucinations and didn't appear to be responding to internal stimuli. DISPOSITION: Discharge home. Continue Invega 3 mg daily. She has a follow-up appointment with therapist at [facility]. Her primary care to manage her psychotropic medication Patient Condition at Discharge: Stable Plan - Discharge Summary Discharge Rx Participant: No New Discharge Prescriptions: New Warfarin [Coumadin] 6 mg PO DAILY@1800 tab Paliperidone [Invega] 3 mg PO HS #30 tab.er.[id number] Continue Ondansetron Odt [Zofran ODT] 8 mg PO Q8HR PRN PRN Reason: Nausea Cholecalciferol [Vitamin D3 (25 Mcg = 1000 Iu)] 5,000 unit PO DAILY busPIRone HCL [Buspar] 30 mg PO BID Cetirizine HCl 10 mg PO DAILY Acetaminophen [Tylenol] 500 mg PO Q4-6H PRN PRN Reason: Pain Gabapentin 800 mg PO BID #60 tab Discharge Medication List Acetaminophen [Tylenol] 500 mg PO Q4-6H PRN 08/10/20 [History] Cetirizine HCl 10 mg PO DAILY 08/10/20 [History] Cholecalciferol [Vitamin D3 (25 Mcg = 1000 Iu)] 5,000 unit PO DAILY 08/10/20 [History] Ondansetron Odt [Zofran ODT] 8 mg PO Q8HR PRN 08/10/20 [History] busPIRone HCL [Buspar] 30 mg PO BID 08/10/20 [History] Gabapentin 800 mg PO BID #60 tab 08/14/20 [Rx] Paliperidone [Invega] 3 mg PO HS #30 tab.er.24 08/14/20 [Rx] Warfarin [Coumadin] 6 mg PO DAILY@1800 tab 08/14/20 [Rx] Follow up Appointment(s)/Referral(s): Penelope Gill [facility] Assistant To The Vice President [Outside] - 08/22/20 2:30 pm (Albin ) Activity/Diet/Wound Care/Special Instructions: Activity and diet as tolerated. Avoid the use of street drugs and alcohol. Take all medications as prescribed. When you are in need of refills on your medications please contact your medical provider and/or outpatient psychiatrist to have this done. Please go to scheduled outpatient appointment for aftercare treatment. If symptoms return or become worse, call the crisis line at and/or go to the nearest emergency room for evaluation. Discharge Disposition: HOME SELF-CARE
[2020-08-14 13:39] LABS: Prothrombin Time 10.7 sec (9.0-12.0)
== END 2020-08-14 15:30 | disposition home or self-care (01) | DRG 897 ==
LOC: 3MHU 16:10
PROVIDERS: ADMIT Psychiatry & Neurology Psychiatry; ATTEND Psychiatry & Neurology Psychiatry
DX: F19.950 Other psychoactive substance use, unspecified with psychoactive substance-induced psychotic disorder with delusions (principal); D68.51 Activated protein C resistance; F43.25 Adjustment disorder with mixed disturbance of emotions and conduct; G89.29 Other chronic pain; Z79.01 Long term (current) use of anticoagulants; Z79.899 Other long term (current) drug therapy; Z83.2 Family history of diseases of the blood and blood-forming organs and certain disorders involving the immune mechanism; Z86.718 Personal history of other venous thrombosis and embolism; Z20.828 Contact with and (suspected) exposure to other viral communicable diseases; Z88.1 Allergy status to other antibiotic agents; Z88.8 Allergy status to other drugs, medicaments and biological substances; G62.9 Polyneuropathy, unspecified
CPT/HCPCS: 80061; 83036; 84443; 85610; 87635; 93005